=== PATIENT | male | born 1995 | race Hispanic/Latino ===

== ENCOUNTER → 2018-01-28 | Outpatient (CLI) | payer OTHER ==
[~2018-01-28] MED LIST: ALBUTEROL SULFATE 0.083% 2.5 MG/3 ML INH IH ONE
== END | disposition home or self-care (01) ==
LOC: RESP 14:55
PROVIDERS: ATTEND Orthopaedic Surgery
DX: M13.871 Other specified arthritis, right ankle and foot (principal); J44.9 Chronic obstructive pulmonary disease, unspecified; M54.2 Cervicalgia; M54.5 Low back pain; M54.6 Pain in thoracic spine
CPT/HCPCS: 71046; 72040; 72070; 72100; 73610; 94060; 94727; 94729

== ENCOUNTER → 2018-02-18 | Outpatient (CLI) | payer OTHER | END | disposition home or self-care (01) | LOC: RAH 08:36 | PROVIDERS: ATTEND Orthopaedic Surgery | DX: I37.1 Nonrheumatic pulmonary valve insufficiency (principal); I25.9 Chronic ischemic heart disease, unspecified; R06.02 Shortness of breath | CPT/HCPCS: 93306 ==